=== PATIENT | female | born 1955 | race Caucasian/White ===

== ENCOUNTER 2021-07-20 06:47 | Inpatient (IN) ==
--- NOTE | 2021-07-13 19:22 | Anesthesiology Consultation ---
Date of Service July 13, 2021 Assessment & Plan (1) Encounter for pre-operative examination: Chart Review Chart Review: Acceptable Risk for Surgery (pending preop Covid testing and DOS CBC ) and Patient NOT seen in Pre Admission Testing -Discussed anemia and increased platelets with Dr. Rodriguez- due to nature of surgery- will proceed as scheduled and recheck CBC with diff DOS. - Check BSG AM DOS Per nursing assessment 07/13/21, pt resides in [facility]. Wears mask in public. Travels to [facility] for medical appts. No known Covid positive contacts or Covid related symptoms. Patient denies known Covid infection in the past 90 days. Patient is vaccinated for Covid. Preop Covid testing scheduled 07/16/21= will await results. History Surgery Operation Date: 07/20/21 08:45 Proposed Procedures p Right Laparoscopic Hand Assisted Nephrectomy - Barney Dominguez MD Height/Weight Height: 5 ft 2 in Weight: 60.781 kg Allergies Allergy/AdvReac Type Severity Reaction Status Date / Time morphine Allergy SEVERE Verified 07/13/21 08:54 VOMITING aspirin AdvReac Unknown Gastrointestinal Verified 07/13/21 08:54 Upset oxycodone [From Percocet] AdvReac VERY Verified 07/13/21 08:54 NAUSEAOUS Medications Home Medications Medication Instructions Recorded Confirmed Last Taken albuterol sulfate 90 mcg/actuation 2 puff INHALATION Q6H PRN 06/16/21 07/13/21 Unknown aerosol inhaler (ProAir HFA) aspirin 81 mg chewable tablet 81 mg PO QPM 06/16/21 07/13/21 Unknown atorvastatin 10 mg tablet 10 mg PO QPM 06/16/21 07/13/21 Unknown coenzyme Q10 100 mg capsule 100 mg PO QAM 06/16/21 07/13/21 Unknown empagliflozin 10 mg tablet 10 mg PO QAM 06/16/21 07/13/21 Unknown escitalopram oxalate 10 mg tablet 10 mg PO QAM 06/16/21 07/13/21 Unknown fluticasone 250 mcg-salmeterol 50 1 inh INHALATION BID PRN 06/16/21 07/13/21 Unknown mcg/dose blistr powdr for inhalation (Advair Diskus) metformin 750 mg tablet,extended 750 mg PO BID 06/16/21 07/13/21 Unknown release 24 hr multivitamin (Daily Multi-Vitamin) 1 tab PO QPM 06/16/21 07/13/21 Unknown pantoprazole 40 mg tablet,delayed 40 mg PO QAM 06/16/21 07/13/21 Unknown release sumatriptan succinate 100 mg tablet 50 mg PO Q2H PRN 06/16/21 07/13/21 Unknown zolpidem 12.5 mg tablet,extended 12.5 mg PO HS PRN tab 06/16/21 07/13/21 Unknown release,multiphase acetaminophen 500 mg capsule 500 - 750 mg PO Q6H PRN 07/13/21 07/13/21 Unknown calcium carbonate 600 mg calcium 600 mg PO QAM 07/13/21 07/13/21 Unknown (1,500 mg) tablet (Calcium) lutein extract 15 mg-zeaxanthin 1 cap PO QPM 07/13/21 07/13/21 Unknown extract 0.7 mg capsule semaglutide (Ozempic) 0.25 mg SUBCUT WK 07/13/21 07/13/21 Unknown Past Medical History Medical History (Updated 07/13/21 @ 19:22 by Charleen Conn PA-C) Anxiety Diabetes mellitus, type 2 GERD (gastroesophageal reflux disease) Hx of bronchiolitis Hyperlipidemia Mass RIGHT KIDNEY Migraine HX Primary insomnia Past Family History Family History Mother Diabetes Hypertension Heart disease Past Surgical History Surgical History H/O rotator cuff surgery H/O wrist surgery H/O: hysterectomy History of cardiac cath 15 YRS AGO-NO STENTS[facility]NO CARDIOLOGY F/U History of colonoscopy Hx laparoscopic cholecystectomy Hx of appendectomy Social History Smoking Status: Former smoker Do You Dip or Chew Tobacco: No Smoking End Date: QUIT 2004 Hx Alcohol Use: No Hx Substance Use: No Lab Results Anesthesia Preop Results Results Anesthesia Widget: WBC 8.68 K/uL (4.8-10.8) 07/07/21 Hgb 10.1 g/dL (12.0-16.0) L 07/07/21 Hct 34.6 % (37-47) L 07/07/21 Plt 602 K/uL (130-400) H 07/07/21 Na 137 mmol/L (136-145) 07/07/21 K 4.2 mmol/L (3.5-5.1) 07/07/21 Cl 101 mmol/L (98-107) 07/07/21 CO2 29 mmol/L (21-32) 07/07/21 BUN 12 mg/dl (7-18) 07/07/21 Creat 0.57 mg/dl (0.6-1.2) L 07/07/21 Glucose Level 149 mg/dl (70-99) H 07/07/21 Lab Comments: Did inform surgeon's office of anemia and thrombocytosis Testing Electrocardiogram Date: 07/07/21 Findings: + NSR @ (90bpm) Normal EKG per cardio. Chest X-Ray Date: 07/07/21 Findings: + NAD
[~2021-07-20 06:47] MED LIST: LR 15ML/HR IV SCH; ceFAZolin 2000MG 2,000 MG/15 ML SYR IV SCH
[2021-07-20 07:29] LABS: Basophils # (auto) 0.03 K/uL (0-0.2); Basophils % (auto) 0.3 %; Eosinophils # (auto) 0.22 K/uL (0-0.5); Eosinophils % (auto) 2.1 %; Hematocrit (blood only) 35.7 % (37-47); Hemoglobin 10.6 g/dL (12.0-16.0); Immature Granulocytes # (auto) 0.03 K/uL (0.00-0.02); Immature Granulocytes % (auto) 0.3 %; Lymphocytes # (auto) 1.94 K/uL (1.2-3.4); Lymphocytes % (auto) 18.7 %; Mean Corpuscular Hemoglobin 21.3 pg (25-34); Mean Corpuscular Volume 71.7 fL (80-100); Mean Platelet Volume 8.1 fL (7.4-10.4); Monocytes # (auto) 1.98 K/uL (0.11-0.59); Monocytes % (auto) 19.1 %; Neutrophils # (auto) 6.15 K/uL (1.4-6.5); Neutrophils % (auto) 59.5 %; Platelet Count 552 K/uL (130-400); RDW Coefficient of Variation 17.6 % (11.5-14.5); RDW Standard Deviation 45.5 fL (36.4-46.3); Red Blood Count 4.98 M/uL (4.2-5.4); White Blood Count 10.35 K/uL (4.8-10.8)
[2021-07-20] MEDS ORDERED: DEXAMETHASONE SOD INJ 4 MG/ML VIAL ONE (07:29)
[2021-07-20] MEDS ORDERED: PROPOFOL IV EMULSION 10 MG/ML 20 ML VIAL IV ONE (07:29)
[2021-07-20] MEDS ORDERED: ROCURONIUM BROMIDE 10 MG/ML 5 ML VIAL IV ONE (07:29)
[2021-07-20] MEDS ORDERED: ONDANSETRON INJ 2 MG/ML 2 ML VIAL ONE ×2 (07:29→10:59)
[2021-07-20] MEDS ORDERED: NEOSTIGMINE METHYLSULFATE 1 MG/ML 10ML VIAL ONE (07:29)
[2021-07-20] MEDS ORDERED: LIDOCAINE 2% 2 ML VIAL/AMP(20MG/ML) INFIL ONE (07:29)
[2021-07-20] MEDS ORDERED: GLYCOPYRROLATE 0.2 MG/ML VIAL ONE (07:29)
[2021-07-20] MEDS ORDERED: fentaNYL citrate 100 MCG/2 ML VIAL ONE (07:30)
[2021-07-20] MEDS ORDERED: MIDAZOLAM HCL 1 MG/ML 2ML VIAL ONE (07:30)
[2021-07-20 07:37] LABS: Mean Corpuscular Hgb Conc 29.7 g/dL (32-36)
[2021-07-20] MEDS ORDERED: BUPIVACAINE 0.5 % 5 MG/1 ML MPF 30ML VIAL ONE (07:43)
[2021-07-20 08:06] LABS: Microcytosis Present
--- NOTE | 2021-07-20 08:13 | History & Physical Bridge Note ---
Date of Service July 20, 2021 History & Physical Bridge Note I have examined the patient, reviewed the History & Physical and in the interval since the performance of the History & Physical I have noted the following changes of clinical significance: no changes noted
[2021-07-20] MEDS ORDERED: ePHEDrine sulfate 50 MG/ML AMP IV PRN (09:10)
[2021-07-20] MEDS ORDERED: HYDROmorphone INJ 2 MG/ML SYR/VIAL IV PRN (09:10)
[2021-07-20] MEDS ORDERED: ONDANSETRON INJ 2 MG/ML 2 ML VIAL IV PRN ×2 (09:10→12:51)
[2021-07-20] MEDS ORDERED: fentaNYL citrate 100 MCG/2 ML VIAL IV PRN (09:10)
[2021-07-20] MEDS ORDERED: ATROPINE SULFATE 0.1 MG/ML 10ML SYR IV PRN (09:10)
[2021-07-20] MEDS ORDERED: LABETALOL HCL IV 5 MG/ML 20ML IV ONE (10:35)
[2021-07-20] MEDS ORDERED: TISSEEL FIBRIN SEALANT 4ML TOP ONE (11:09)
--- NOTE | 2021-07-20 11:41 | Operative Report ---
PG Post Operative Report Pre & Post Diagnosis Operation Date: 07/20/21 09:20 Pre-Op Diagnosis: Right Kidney mass Post-Op Diagnosis: Right Kidney mass I identified the patient and participated in the time-out.: Yes Procedure Operation Date: 07/20/21 09:20 Actual Procedures p Right Laparoscopic Hand Assisted Nephrectomy(Right) - Barney Dominguez MD Surgeon Surya Dominguez MD Tipping Machine Operator Automatic Sherley Kingston Estimated Blood Loss 25 Findings Consistent with Post-Op Diagnosis Specimens Right kidney for routine pathology Description of Procedure She was identified in the preoperative holding area, appropriate informed consents reviewed and completed and she was transported to the operating suite. Upon arrival she received appropriate preoperative antibiotics in the form of Ancef as well as general anesthesia. She was placed in the left side down right side up lateral decubitus position with the bed flexed. She was padded and braced appropriately followed by a sterile prep. Of note, she has a large right lower pole mass but has also had a prior open cholecystectomy. With this in mind an initial [place] style incision was made in the right lower quadrant just below the expected location of the lower pole. A 7 to 8 cm incision was made in this area and carried through the superficial tissues until I identified the external oblique fascia. I incised the external oblique fascia and dissected towards the medial lateral border of the rectus muscle. In total I open the fascia for the length of the incision. I then sharply incised the internal oblique fascia and opened in a similar fashion followed by a careful sharp incision of the transversalis fascia and peritoneum. A finger sweep revealed no evidence of adhesive disease around her location of entry. I was able to expand the peritoneal incision for the length of the skin incision and then placed a GelPort retractor. Utilizing this GelPort to help with retraction we were able to incise the white line of Toldt and medialize the colon off of the majority of the kidney. I carried this dissection caudally as far as possible as well. I was able to visualize the duodenum and begin kocherizing the duodenum through our open incision. Of note, she did have some adhesions of the medial portion of the liver to the anterior abdominal wall but these did not seem to interfere with her port sites. After feeling that maximized my open dissection I placed the top portion of the GelPort and introduced a 12 mm Visiport through the GelPort. I utilized this to insufflate the abdomen and performed a laparoscopic evaluation. This confirmed a clear anterior wall in the area of our intended port positioning. I then withdrew the 12 mm Visiport and placed my hand through the port and subsequently placed to lap trochars on to my hand. Both of these were at the lateral border of the rectus, one approximately 5 cm above the umbilicus another approximately 5 cm above that. We then commenced the laparoscopic portion of the case. I continue to peritoneal incision lateral to the kidney until I reached the upper pole. I then incised the peritoneum above the upper portion of the kidney and connected this area to our prior dissection performed in open fashion. I completed kocherizing the duodenum and we identified the gonadal vein. I created a window just lateral to the gonadal vein. I was able to visualize the ureter in this location and I elevated the ureter. I was able to pass a finger onto the psoas muscle and utilized this to elevate the lower pole of the kidney. I traced the gonadal vein back to the IVC and followed the IVC until we encountered the renal vein. Of note she has a solitary renal vein and artery was easily palpable just behind the vein. I dissected to the inferior edge and then controlled the hilar structures with a solitary staple load. This freed the entire medial portion of the kidney and I was able to utilize a harmonic scalpel to complete our superior dissection as well as the lateral dissection. The only remaining tissue was the ureter and lower pole of Gerota's fascia. I utilized a harmonic scalpel to control both of these. The kidney was then entirely freed and was withdrawn through the hand port. Inspection revealed that the hilar structures were extremely hemostatic and there was no active bleeding from the renal fossa. This concluded the laparoscopic portion of the case. We proceeded to close the hand port in multiple layers with the first layer incorporating the peritoneum and transversalis fascia followed by a second layer utilizing a 0 Vicryl to close the internal oblique fascia. A third layer was used to close the external oblique fascia using a 0 Vicryl. The 2 lap ports were closed with 0 Vicryl followed by 4-0 Monocryl. A 4-0 Monocryl subcuticular stitch was used to close the hand port. Dermabond was placed over all incisions and the case concluded. She was extubated and taken to the PACU in stable condition. There were no complications. Sherley Kingston assisted from incision to closure. I attest to the content of the Intraoperative Record and any orders documented therein. Any exceptions are noted below.
[2021-07-20 12:36] LABS: Basophils # (auto) 0.01 K/uL (0-0.2); Basophils % (auto) 0.1 %; Eosinophils # (auto) 0.04 K/uL (0-0.5); Eosinophils % (auto) 0.4 %; Hematocrit (blood only) 32.7 % (37-47); Hemoglobin 9.5 g/dL (12.0-16.0); Immature Granulocytes # (auto) 0.02 K/uL (0.00-0.02); Immature Granulocytes % (auto) 0.2 %; Lymphocytes # (auto) 0.93 K/uL (1.2-3.4); Lymphocytes % (auto) 9.8 %; Mean Corpuscular Hemoglobin 21.1 pg (25-34); Mean Corpuscular Volume 72.7 fL (80-100); Mean Platelet Volume 8.2 fL (7.4-10.4); Monocytes # (auto) 0.43 K/uL (0.11-0.59); Monocytes % (auto) 4.5 %; Platelet Count 513 K/uL (130-400); RDW Coefficient of Variation 17.6 % (11.5-14.5); RDW Standard Deviation 46.8 fL (36.4-46.3); White Blood Count 9.53 K/uL (4.8-10.8)
[2021-07-20 12:40] LABS: Mean Corpuscular Hgb Conc 29.1 g/dL (32-36)
[2021-07-20 12:51] LABS: BUN Creatinine Ratio 12.4 (10-20); Calcium 9.1 mg/dl (8.5-10.1); Creatinine Clr Calc Pharmacy 76.5 ml/min; Est GFR (African American) 112.1 ml/min; Est GFR (Non-African American) 96.7 ml/min; Potassium 3.4 mmol/L (3.5-5.1)
[2021-07-20] MEDS ORDERED: HYDROmorphone INJ 0.5 MG/0.5 ML SYR IV PRN ×2 (12:51)
[2021-07-20] MEDS ORDERED: PHARMACY GLYCEMIC MGMT CONSULT PRN (12:51)
[2021-07-20] MEDS ORDERED: SUMAtriptan succinate 50 MG TAB PO PRN (12:51)
[2021-07-20] MEDS ORDERED: HYDROCODONE/ACETAMOPHEN 5/325MG TAB PO PRN (12:51)
[2021-07-20 12:57] LABS: Microcytosis Present
[2021-07-20] MEDS ORDERED: ALBUTEROL HFA 8 GM INHALER INH PRN (12:57)
[2021-07-20] MEDS: LACTATED RINGER'S 1,000 ML IV SCH ×2 (13:00→22:58)
--- NOTE | 2021-07-20 13:10 | Anesthesiology Progress Note ---
Date of Service July 20, 2021 Anesthesia Post Procedure Vital Signs Vital Signs: Temp Pulse Pulse Resp BP Pulse Ox 07/20/21 12:20 36.6 C 75 12 108/57 L 97 07/20/21 12:10 77 15 119/65 97 07/20/21 12:00 74 12 113/61 97 07/20/21 11:55 76 12 105/61 97 07/20/21 11:45 78 13 112/65 96 07/20/21 11:37 36.6 C 83 12 121/70 94 07/20/21 07:14 36.8 C 115 H 16 118/79 96 07/20/21 07:06 73 16 103/58 L 97 Pain Intensity Right Abdomen: Pain Intensity: 4 Transfer of Care Handoff Completed per policy Notes Mental Status: alert / awake / arousable and participated in evaluation Patient Amnestic to Procedure: Yes Nausea / Vomiting: adequately controlled Pain: adequately controlled Airway Patency, RR, SpO2: stable & adequate BP & HR: stable & adequate Hydration State: stable & adequate Anesthetic Complications: no major complications apparent
[2021-07-20] MEDS ORDERED: INSULIN GLARGINE SOLOSTAR 100 UNITS/ML 3 ML PEN SC ONE (13:45)
[2021-07-20] MEDS ORDERED: DEXTROSE 50% 50 ML SYRINGE IV PRN (13:45)
[2021-07-20] MEDS ORDERED: GLUCOSE 40% GEL 15 GM TUBE PO PRN (13:45)
[2021-07-20] MEDS ORDERED: CARBOHYDRATES FOR HYPOGLYCEMIA PO PRN (13:45)
[2021-07-20] MEDS ORDERED: GLUCOSE 10 TABS/TUBE PO PRN (13:45)
[2021-07-20] MEDS ORDERED: GLUCAGON FOR INJ 1 MG VIAL IM PRN (13:45)
--- NOTE | 2021-07-20 13:52 | Pharmacy Report ---
Pharmacy Glycemic Short Note 2 - Date of Service July 20, 2021 - Glycemic Short BSG Results (Last 24 hours): 07/20/21 07/20/21 07/20/21 07:15 12:04 12:21 Glucose 178 H POC Glucose 172 H 189 H OUTPATIENT ANTIDIABETIC REGIMEN: * Empagliflozin 10mg PO QAM * Metformin 750mg PO BIDM * Semaglutide 0.25mg SQ Wednesdays * Ac = unknown ASSESSMENT: * 65yo T2DM female with unknown degree of outpatient control. No A1c listed in medical record. Ordered for tomorrow with AM labs per protocol but will interpret conservatively based on renal mass * Pt is maintained on three antidiabetic agents - will need SQ basal bolus insulin regimen for inpatient use at baseline but pt did also receive dexamethasone in OR which will cause severe hyperglycemia. * Pt only ordered a clear liquid diet - will use Lantus rather than NPH since it is peakless; less likely to cause hypo with decreased PO intake. * Will start with weight based dosing for insulin naive patient and titrate based on BSG trends. PLAN FOR INPATIENT GLYCEMIC CONTROL: * Hold outpatient diabetes medications * Basal insulin * Lantus 20 units SQ x 1 dose now - further dosing TBD tomorrow * Bolus insulin * NovoLog per scale ACHS or Q6hrs while NPO * Goal Range: Low 110 mg/dL - High 140 mg/dL * Correction Factor: 25 mg/dL/unit * Nutritional / Prandial insulin per carb ratio of 1 unit per 9 grams CHO co nsumed PLAN FOR DISCHARGE: * TBD
[2021-07-20] MEDS: INSULIN ASPART 100 UNITS/ML 3 ML PEN SC SCH ×3 (14:37→21:02)
[2021-07-20] MEDS: HYDROCODONE/ACETAMOPHEN 5/325MG TAB PO PRN (17:22)
[2021-07-20] MEDS: ceFAZolin 2000MG 2,000 MG/15 ML SYR IV SCH (17:22)
[2021-07-20] MEDS: HEPARIN SOD 5,000 UNIT/0.5 ML VIAL SQ SCH (22:24)
[2021-07-20] MEDS: ATORVASTATIN 10 MG TAB PO SCH (22:24)
[2021-07-20] MEDS: ZOLPIDEM TARTRATE 10 MG TAB PO PRN (22:55)
[2021-07-20] MEDS: ACETAMINOPHEN 325 MG TAB PO PRN (22:57)
[2021-07-21] MEDS: INSULIN ASPART 100 UNITS/ML 3 ML PEN SC SCH ×6 (00:54→21:38)
[2021-07-21] MEDS: ceFAZolin 2000MG 2,000 MG/15 ML SYR IV SCH (01:48)
[2021-07-21] MEDS: HYDROCODONE/ACETAMOPHEN 5/325MG TAB PO PRN ×3 (01:50→15:10)
[2021-07-21 07:34] LABS: Basophils # (auto) 0.01 K/uL (0-0.2); Basophils % (auto) 0.1 %; Eosinophils # (auto) 0.07 K/uL (0-0.5); Eosinophils % (auto) 0.7 %; Hematocrit (blood only) 29.8 % (37-47); Hemoglobin 8.9 g/dL (12.0-16.0); Immature Granulocytes # (auto) 0.02 K/uL (0.00-0.02); Immature Granulocytes % (auto) 0.2 %; Lymphocytes # (auto) 2.24 K/uL (1.2-3.4); Lymphocytes % (auto) 23.8 %; Mean Corpuscular Hemoglobin 21.6 pg (25-34); Mean Corpuscular Hgb Conc 29.9 g/dL (32-36); Mean Corpuscular Volume 72.3 fL (80-100); Mean Platelet Volume 8.2 fL (7.4-10.4); Monocytes # (auto) 1.39 K/uL (0.11-0.59); Monocytes % (auto) 14.8 %; Neutrophils # (auto) 5.67 K/uL (1.4-6.5); Neutrophils % (auto) 60.4 %; Platelet Count 460 K/uL (130-400); RDW Coefficient of Variation 17.8 % (11.5-14.5); Red Blood Count 4.12 M/uL (4.2-5.4)
[2021-07-21] MEDS ORDERED: COUGH DROP (SUGAR FREE) LOZ 24 LOZ/1 BOX BUCCAL PRN (08:03)
[2021-07-21] MEDS: LACTATED RINGER'S 1,000 ML IV SCH (08:05)
[2021-07-21 08:11] LABS: BUN Creatinine Ratio 6.9 (10-20); Calcium 8.8 mg/dl (8.5-10.1); Creatinine Clr Calc Pharmacy 50.4 ml/min; Est GFR (African American) 79.9 ml/min; Est GFR (Non-African American) 68.9 ml/min; Potassium 3.3 mmol/L (3.5-5.1)
[2021-07-21 08:18] LABS: Estimated Average Glucose 203 mg/dl; Hemoglobin A1C 8.7 % (4.5-5.6)
[2021-07-21 08:48] LABS: Microcytosis Present
[2021-07-21] MEDS ORDERED: FLUTICASONE/VILANTEROL 200/25MCG 14 PUFFS/INHALER INH PRN (09:00)
[2021-07-21] MEDS: ESCITALOPRAM OXALATE 10 MG TAB PO SCH (09:21)
[2021-07-21] MEDS: HEPARIN SOD 5,000 UNIT/0.5 ML VIAL SQ SCH ×2 (09:21→21:37)
[2021-07-21] MEDS: PANTOprazole 40 MG TAB PO SCH (09:22)
--- NOTE | 2021-07-21 09:56 | Pharmacy Report ---
Pharmacy Glycemic Short Note 2 - Date of Service July 21, 2021 - Glycemic Short BSG Results (Last 24 hours): 07/20/21 07/20/21 07/20/21 12:04 12:21 14:19 Glucose 178 H POC Glucose 189 H 205 H 07/20/21 07/20/21 07/21/21 17:01 20:38 00:46 Glucose POC Glucose 146 H 124 H 99 07/21/21 07/21/21 07/21/21 04:06 07:00 08:09 Glucose 89 POC Glucose 98 90 OUTPATIENT ANTIDIABETIC REGIMEN: * Empagliflozin 10mg PO QAM * Metformin 750mg PO BIDM * Semaglutide 0.25mg SQ Wednesdays * HbA1c: 8.7% (07/21/21) ASSESSMENT: 07/21 * POD #1 s/p laparoscopic nephrectomy * BSGs well-controlled postoperatively (146, 124, and 99 mg/dL) * Received 25 units of insulin - 20 units of which was to cover dexamethasone in OR * Fasting BSG of 90 mg/dL this morning * Diet advanced from clears to T2DM 07/20: * 65yo T2DM female with unknown degree of outpatient control. No A1c listed in medical record. Ordered for tomorrow with AM labs per protocol but will interpret conservatively based on renal mass * Pt is maintained on three antidiabetic agents - will need SQ basal bolus insulin regimen for inpatient use at baseline but pt did also receive dexamethasone in [place] which will cause severe hyperglycemia. * Pt only ordered a clear liquid diet - will use Lantus rather than NPH since it is peakless; less likely to cause hypo with decreased PO intake. * Will start with weight based dosing for insulin naive patient and titrate based on BSG trends. PLAN FOR INPATIENT GLYCEMIC CONTROL: * Hold outpatient diabetes medications * Basal insulin - decrease * Lantus 6 units SC x 1 today (~0.1 unit/kg) * Bolus insulin - loosen * NovoLog per scale ACHS or Q6hrs while NPO * Goal Range: Low 110 mg/dL - High 140 mg/dL * Correction Factor: 35 mg/dL/unit * Nutritional / Prandial insulin per carb ratio of 1 unit per 12 grams CHO consumed PLAN FOR DISCHARGE: * HbA1c is elevated at 8.7% * Reasonable HbA1c goal for this patient would be less than 7% * Per parent educator, patient recently initiated on semaglutide with plan to increase dose starting next week - this change is likely adequate, but could also consider increasing metformin to maximum dose of 1 g PO BIDM. Continue Jardiance. * Patient also encouraged to increase SMBG and will alert provider if BSGs are out of range
[2021-07-21] MEDS ORDERED: INSULIN GLARGINE SOLOSTAR 100 UNITS/ML 3 ML PEN SC ONE ×2 (12:45)
--- NOTE | 2021-07-21 16:15 | Urology Progress Note ---
Date of Service July 21, 2021 Assessment & Plan (1) Right kidney mass: Plan: Right renal mass concerning for renal cell carcinoma now status post radical nephrectomy Recovering appropriately Garza out this morning Advance diet Ambulate Labs appropriate Likely discharge home tomorrow Admission and Anticipated Discharge Date Admission Date: July 20, 2021 Subjective Doing very well after her right radical nephrectomy She has expected levels of pain She had been out of bed into the chair prior to our evaluation this morning She is asking for food Labs all appropriate, good urine output overnight Physical Exam Physical Exam: Incisions appropriate, no bruising, clear urine Results & Data ([facility]) Vital Signs (Past 12 Hours) Vital Signs Temp Pulse Resp BP Pulse Ox 07/21/21 15:14 36.8 C 65 20 131/69 91 07/21/21 07:02 36.9 C 68 16 119/67 91 PG Care Time/CCT Total # of Minutes Spent Total Time Spent with Patient: Total time spent is greater than 50% in coordination of care (as documented) at patient's floor/unit and/or counseling patient: Coding Level of Care Code 52949 Subseq Hosp Care Lvl 2 Diagnoses Right kidney mass N28.89
[2021-07-21] MEDS: ACETAMINOPHEN 325 MG TAB PO PRN (21:35)
[2021-07-21] MEDS: ZOLPIDEM TARTRATE 10 MG TAB PO PRN (21:36)
[2021-07-21] MEDS: ATORVASTATIN 10 MG TAB PO SCH (21:36)
[2021-07-22] MEDS: HYDROCODONE/ACETAMOPHEN 5/325MG TAB PO PRN (00:49)
[2021-07-22 07:32] LABS: Creatinine Clr Calc Pharmacy 47.7 ml/min; Est GFR (African American) 74.7 ml/min; Est GFR (Non-African American) 64.5 ml/min; Potassium 4.1 mmol/L (3.5-5.1)
--- NOTE | 2021-07-22 07:56 | Urology Progress Note ---
Date of Service July 22, 2021 Assessment & Plan (1) Right kidney mass: Plan: 65yo F admitted s/p status post radical nephrectomy for a right renal mass concerning for renal cell carcinoma - POD #2 s/p Right Laparoscopic Hand Assisted Nephrectomy with Dr. Dominguez - Patient doing well, progressing as expected. - She is afebrile, VSS. - Labs reviewed, Wbc and Cr stable. Hgb 9.9. - Voiding spontaneously without difficulty - Tolerating diet - Surgical incisions appropriate - Eager to go home today - Expected clinical course reviewed with patient, she verbalized understanding. All questions answered. - Postoperative follow-up appointment in place. - Stable for discharge home today Admission and Anticipated Discharge Date Admission Date: July 20, 2021 Supervising Physician Co-Signing Physician Notes Discussed patient and plan with CONRADO. Agree with above. POD2 from right hand assist nephrectomy. Doing well. Vitals and labs stable. Anticipate discharge home today. Subjective Pt examined at bedside this AM. Awake, resting in bed on arrival. Complains of intermittent right sided abdominal pain, managing with PO [place]. No fevers or chills. Tolerating diet, no nausea or vomiting. No flatus, some belching. Ambulating without dizziness. Voiding spontaneously without difficulty. No hematuria or dysuria. Overall feeling better today than yesterday and is eager to go home. Review of Systems Constitutional: as per Subjective / HPI Gastrointestinal: as per Subjective / HPI Genitourinary: as per Subjective / HPI Physical Exam Constitutional: well developed and well nourished; no acute distress and not ill appearing Respiratory: normal respiratory effort and able to speak in complete sentences; no labored breathing and no audible wheezes Gastrointestinal (Abdomen): Inspection/Auscultation: + abdominal surgical incision (Surgical incisions appropriate, dermabond intact.) Percussion/Palpation: + abdomen tender (Mild tenderness to right side) and abdomen soft; no guarding and abdomen not rigid Musculoskeletal: Head/Neck/Chest: normocephalic Skin: No visible rashes or lesions to exposed skin areas Neurologic: moves all extremities and awake Psychiatric: Orientation: alert, oriented x 3 and cooperative Results & Data ([facility]) Vital Signs (Past 12 Hours) Vital Signs Temp Pulse Resp BP Pulse Ox 07/22/21 07:45 77 17 115/69 93 07/21/21 22:30 36.9 C 74 16 144/72 H 93 PG Care Time/CCT Total # of Minutes Spent Total Time Spent with Patient: Total time spent is greater than 50% in coordination of care (as documented) at patient's floor/unit and/or counseling patient: Coding Level of Care Code None Diagnoses Right kidney mass N28.89
[2021-07-22 08:24] LABS: Hematocrit (blood only) 34.5 % (37-47); Hemoglobin 9.9 g/dL (12.0-16.0); Mean Corpuscular Hgb Conc 28.7 g/dL (32-36); Mean Corpuscular Volume 73.2 fL (80-100); Mean Platelet Volume 8.1 fL (7.4-10.4); Platelet Count 476 K/uL (130-400); RDW Coefficient of Variation 17.8 % (11.5-14.5); RDW Standard Deviation 47.5 fL (36.4-46.3); Red Blood Count 4.71 M/uL (4.2-5.4); White Blood Count 9.26 K/uL (4.8-10.8)
[2021-07-22 08:28] LABS: Basophils # (auto) 0.02 K/uL (0-0.2); Basophils % (auto) 0.2 %; Echinocytes 1+; Eosinophils # (auto) 0.46 K/uL (0-0.5); Immature Granulocytes # (auto) 0.02 K/uL (0.00-0.02); Immature Granulocytes % (auto) 0.2 %; Lymphocytes # (auto) 2.48 K/uL (1.2-3.4); Lymphocytes % (auto) 26.8 %; Microcytosis Present; Monocytes # (auto) 1.14 K/uL (0.11-0.59); Monocytes % (auto) 12.3 %; Neutrophils # (auto) 5.14 K/uL (1.4-6.5); Neutrophils % (auto) 55.5 %; Ovalocytes 1+
[2021-07-22] MEDS: HEPARIN SOD 5,000 UNIT/0.5 ML VIAL SQ SCH (08:33)
[2021-07-22] MEDS: ESCITALOPRAM OXALATE 10 MG TAB PO SCH (08:33)
[2021-07-22] MEDS: PANTOprazole 40 MG TAB PO SCH (08:33)
[2021-07-22] MEDS: INSULIN ASPART 100 UNITS/ML 3 ML PEN SC SCH ×3 (08:34→12:38)
[2021-07-22] MEDS ORDERED: INSULIN GLARGINE SOLOSTAR 100 UNITS/ML 3 ML PEN SC SCH (09:00)
--- NOTE | 2021-07-23 23:00 | Discharge Summary ---
Date of Service July 23, 2021 Principal Diagnosis Renal cell carcinoma Discharge Data Allergies Allergy/AdvReac Type Severity Reaction Status Date / Time morphine Allergy SEVERE Verified 07/20/21 07:20 VOMITING aspirin AdvReac Unknown Gastrointestinal Verified 07/20/21 07:20 Upset oxycodone [From Percocet] AdvReac VERY Verified 07/20/21 07:20 NAUSEAOUS Procedures Performed Operation Date: 07/20/21 09:20 Actual Procedures p Right Laparoscopic Hand Assisted Nephrectomy(Right) - Barney Dominguez MD Hospital Course (1) Clear cell renal cell carcinoma: Patient admitted for right radical nephrectomy for suspected renal cell carcinomaultimately pathology confirmed the suspicion. Details of that procedure are as dictated previously in the operative report, however, in summary she tolerated the surgery very well. She progressed appropriately into postoperative day #1. Her Garza catheter was removed and she was ambulatory and tolerating a diet. She remained in the hospital until postoperative day #2 and was subsequently discharged in stable condition. Her creatinine stayed within the normal/expected range and her hemoglobin was stable throughout. There were no issues prior to discharge and she was stable. Total Time Total Time Spent Total Time Spent (In Minutes): 32 Discharge Plan Discharge Items Patient Disposition: Home - Self-Care Reason For Visit: Right Kidney mass Discharge Diagnosis: Right Kidney Mass Activity: Per Instructions section Lifting: No more than 25 pounds Bathing Comment: OK to shower. No tub baths or soaks. Sexual Activity: Wait until after follow-up appointment Exercise/Sports: Wait until after follow-up appointment Driving/Machine Use: Do not drive while taking prescription pain medication. Non-emergency contact: Surgeon and Urologist Call non-emergency contact if: you have any medication questions, your pain is not controlled, you have a fever, your temperature is above 101, your wound has increased redness, your wound has increased drainage and your wound pain has increased Follow-up/Referrals: Barney Dominguez MD [Physician] - 08/02/21 8:45 am Asif Mederos [Primary Care Provider] - Diet: Carb Consistent or DM2 Addtl Attending Provider Instructions: Please take all medications as prescribed and keep all follow-ups as scheduled. Please call our office at [phone] with any questions, concerns or need to reschedule appointments for any reason. We are happy to assist you. Recovering at home: We recommend having someone with you for the first few days after surgery to help care for you. It is okay to shower tomorrow. Please avoid swimming, bathing or using hot tub until incisions are well healed. Avoid driving until you are not requiring pain medication any further. Walk at least a few times a day. Increase your distance, as you feel able. Stairs in your home are okay. Please avoid strenuous or sexual activity until your follow-up. We recommend using stool softener (i.e. Colace) to prevent constipation and straining, especially the first two weeks post operatively. Call [facility] at [phone] if you experience: Chest pain or trouble breathing (call 630 or go to the hospital). Fever of 101F or higher Symptoms of infection at incision site, including redness or swelling, warmth, or bad-smelling drainage If you have catheter, and you notice: o Bloody urine or drainage that is dark red or has large clots (Please remember a small amount of blood is normal) o No drainage from the catheter for more than 6 hours o The catheter comes out of your bladder Pain that is not controlled with medicines Pending Studies at Discharge: Yes Stand-Alone Forms: My [facility], Opioid Pain Management, Smoking Cessation Medications and DC Order Prescriptions: New docusate sodium [Colace] 100 mg capsule 100 mg PO BID Qty: 30 RF: 0 hydrocodone-acetaminophen 5-325 mg tablet 1 tab PO Q8H PRN (Reason: pain) Qty: 10 RF: 0 Continued albuterol sulfate [ProAir HFA] 90 mcg/actuation HFA aerosol inhaler 2 puff inhalation Q6H PRN (Reason: Wheezing) RF: 0 aspirin 81 mg tablet,chewable 81 mg PO QPM RF: 0 atorvastatin 10 mg tablet 10 mg PO QPM RF: 0 empagliflozin 10 mg tablet 10 mg PO QAM RF: 0 escitalopram oxalate 10 mg tablet 10 mg PO QAM RF: 0 fluticasone propion-salmeterol [Advair Diskus] 250-50 mcg/dose blister with device 1 inh inhalation BID PRN (Reason: Wheezing) RF: 0 metformin 750 mg tablet extended release 24 hr 750 mg PO BID RF: 0 multivitamin [Daily Multi-Vitamin] Tablet 1 tab PO QPM RF: 0 pantoprazole 40 mg tablet,delayed release (DR/EC) 40 mg PO QAM RF: 0 sumatriptan succinate 100 mg tablet 50 mg PO Q2H PRN (Reason: Migraine Headache) RF: 0 coenzyme Q10 100 mg capsule 100 mg PO QAM RF: 0 zolpidem 12.5 mg tablet,ext release multiphase 12.5 mg PO HS PRN (Reason: Sleep) RF: 0 Ozempic 0.25 mg or 0.5 mg(2 mg/1.5 mL) Pen Injector 0.25 mg SUBCUT WK RF: 0 acetaminophen 500 mg Capsule 500 - 750 mg PO Q6H PRN (Reason: Pain) RF: 0 lutein extract-zeaxanthin ext 15-0.7 mg Capsule 1 cap PO QPM RF: 0 calcium carbonate [Calcium 600] 600 mg calcium (1,500 mg) Tablet 600 mg PO QAM RF: 0 Discharge Orders: Discharge Order (Routine); Ordered 07/22/21 Ordered By: Sherley Jin/Other Patient Handouts: DVT Post Op Prevention Admission Data Admit Date/Time: 07/20/21 11:42 Attending Provider: Barney Dominguez Admit Provider: Barney Dominguez Primary Care Provider: Asif Mederos Other Interventions: Discharge Summary Assessment (RN) Last Done: 07/22/21 12:15 Coding Level of Care Code D/C DAY MANAGEMENT >30 MINS Diagnoses Clear cell renal cell carcinoma C64.9
== END 2021-07-22 14:43 | disposition home or self-care (01) | DRG 658 ==
LOC: ASU 06:47 → 3W 11:42